=== PATIENT | male | born 1980 | race Caucasian/White ===

== ENCOUNTER 2022-10-18 16:14 | Emergency (ER) | payer OTHER, SELFPAY ==
[2022-10-18 16:27] VITALS: BP 125/93; PULSE 94; RESP 16; TEMP 36.7; O2SAT 96; BMI 28.8
--- NOTE | 2022-10-18 16:29 | ED_ITS ---
HPI - General Adult General Chief complaint: Chest Pain Stated complaint: heart issues Time Seen by Provider: 10/18/22 16:24 History of Present Illness HPI narrative: 42-year-old male nonsmoker with prior history of tachycardic episodes presents with a chief complaint of an episode of tachycardia this morning while at rest. His watch states his heart rate got up to about 160. This resolved long before his arrival. He states that he would presented initially to an outside walk-in clinic and had an EKG but as they could not obtain lab work he was sent here for further evaluation. He states that while his heart rate was high he was feeling a bit dizzy and lightheaded but in the aftermath he is asymptomatic. He denies any new medications, no change in his caffeine intake. He denies any street drugs such as cocaine or methamphetamines. Related Data Allergies Allergy/AdvReac Type Severity Reaction Status Date / Time No Known Drug Allergies Allergy Verified 10/18/22 16:27 Review of Systems Review of Systems Narrative: GENERAL: Denies chills, fatigue, malaise, fever, sweats. HEENT: Denies sinus pain, ear pain, sore throat, difficulty swallowing, dizziness. RESPIRATORY: Denies dyspnea, cough, wheezing, hemoptysis, sputum. CARDIOVASCULAR: See HPI GASTROINTESTINAL: Denies nausea, vomiting, abdominal pain, diarrhea, constipation, melena. : Denies dysuria, frequency, incontinence, hematuria, urinary retention. MUSCULOSKELETAL: denies weakness, joint pain, or bony pain SKIN: Denies rash, skin lesions, or other NEUROLOGIC: Denies weakness, headache, numbness, change in speech, confusion, seizures, incoordination. PSYCHIATRIC: No concerning psychosocial issues. 12 point review of systems is negative except for those stated above Patient History Social History Smoking Status: Never smoker Exam Narrative Exam Narrative: GENERAL: [42] year old patient appears stated age. Well-developed patient, in mild distress. HEAD: Atraumatic. Normocephalic. EYES: Pupils equal round and reactive. Extraocular motions intact. No scleral icterus. No injection or drainage. ENT: Nose without bleeding, purulent drainage. Throat without erythema, tonsillar hypertrophy or exudate. Airway patent. NECK: Trachea midline. Non tender CARDIOVASCULAR: Regular rate and rhythm without murmurs, gallops, or rubs. RESPIRATORY: Clear to auscultation. Breath sounds equal bilaterally. No wheezes, rales, or rhonchi. GASTROINTESTINAL: Abdomen soft, non-tender, nondistended. EXTREMITIES: No edema or joint tenderness. BACK: Nontender without deformity or crepitance. No flank tenderness. NEURO: AOx3. SKIN: No rash or erythema of visible areas Initial Vital Signs Initial Vital Signs: Vital Signs Temperature 98.1 F 10/18/22 16:27 Pulse Rate 94 H 10/18/22 16:27 Respiratory Rate 16 10/18/22 16:27 Blood Pressure 125/93 H 10/18/22 16:27 Pulse Oximetry 96 10/18/22 16:27 Oxygen Delivery Method Room Air 10/18/22 16:27 Course Orders Ordered: ED Orders 10/18/22 16:33 BMP [Basic Metabolic Panel] Stat CBC Auto Diff [Complete Blood Count AUTO DIFF] Stat Vital Signs Vital signs: Vital Signs - 8 hr 10/18/22 16:27 10/18/22 16:38 10/18/22 16:42 Temperature 98.1 F Pulse Rate 94 H 77 Respiratory Rate 16 Blood Pressure 125/93 H 112/67 Pulse Oximetry 96 95 Oxygen Delivery Method Room Air 10/18/22 16:42 10/18/22 17:00 10/18/22 17:00 Temperature Pulse Rate 75 71 Respiratory Rate 17 16 Blood Pressure 102/68 Pulse Oximetry 95 95 Oxygen Delivery Method Room Air 10/18/22 17:30 10/18/22 17:30 10/18/22 18:00 Temperature Pulse Rate 69 Respiratory Rate 14 Blood Pressure 109/71 122/78 Pulse Oximetry 96 Oxygen Delivery Method 10/18/22 18:00 Temperature Pulse Rate 72 Respiratory Rate 13 Blood Pressure Pulse Oximetry 98 Oxygen Delivery Method Medical Decision Making Lab Data 10/18/22 16:33 10/18/22 16:33 Labs: Lab Results 10/18/22 10/18/22 Range/Units 16:33 16:33 WBC 9.3 (4.5-11.0) X10^3/uL RBC 4.95 (4.5-5.9) X10^6/uL Hgb 14.6 (13.5-17.5) g/dL Hct 42.5 (41-53) % MCV 86.0 (80-100) fL MCH 29.4 (26-34) PG MCHC 34.2 (30-36) % RDW 13.8 (11.6-14.8) % Plt Count 467 H (150-400) X10^3/uL Neut % (Auto) 57.2 (50-75) % Lymph % (Auto) 31.8 (25-40) % [place] % (Auto) 7.0 (3-14) % Eos % (Auto) 3.1 (2-4) % Baso % (Auto) 0.9 (0-2) % Neut # (Auto) 5300 (7978-5801) /uL Lymph # (Auto) 2900 (7057-8619) /uL [place] # (Auto) 600 (0-900) /uL Eos # (Auto) 300 (0-450) /uL Baso # (Auto) 100 (0-100) /uL Sodium 136 L (137-145) mmol/L Potassium 3.9 (3.4-5.1) mmol/L Chloride 98 (98-107) mmol/L Carbon Dioxide 26 (22-32) mmol/L BUN 20 (9-20) mg/dL Creatinine 1.28 H (0.66-1.25) mg/dL Estimated GFR > 60 (>60) mL/min BUN/Creatinine Ratio 15.6 (6-22) Glucose 87 (70-100) mg/dL Calcium 9.2 (8.4-10.2) mg/dL ECG Data Interpretation: 1629] EKG is normal sinus rhythm rate [81 ] and free of any signs of ischemia or ectopy. No ST segmental elevation or depression. No T wave inversions MDM Narrative Medical decision making narrative: [42] year old patient presents with an episode of tachycardia with typical associated symptoms such as dizziness, weakness and lightheadedness Multiple etiologies for patient's symptoms considered including, but not limited to: [AFib versus SVT versus other] Prior Charts reviewed in our EMR Primary Historian: patient Labs reviewed and interpreted by myself: No significant abnormalities, specifically electrolytes within normal. EKG normal sinus rhythm Patient asymptomatic for duration of visit, EKG normal sinus, physical exam reassuring. Labs unremarkable. Patient encouraged to follow up close with his doctor, avoid caffeine in excess, nicotine, alcohol and other stimulants. Patient encouraged to return for recurrence of tachycardia, chest pain, shortness of breath or other concerning symptoms Findings and discharge diagnosis discussed with patient/family followed by verbalization of understanding Return precautions discussed with patient/family whom verbalize understanding of diagnosis and plan Discharge Plan Departure Patient Disposition: Home Clinical Impression: Heart palpitations Instructions: DI for Palpitations Activity Restrictions/Additional Instructions: *You have been diagnosed with [palpitations. Your history and physical exam are reassuring and there are no significant lab abnormalities. Your EKGs unremarkable at this time.] *What to do: *Please continue to take your regular medications as directed. *Please follow up with your primary care provider in 2-3 days, call for an appointment. Let them know you were seen in the Emergency Department and that we ask that you be seen in follow up. We will electronically transmit a record of today's note if your PCP is in our system *If you do not have a primary care provider please contact the [facility] Resource line at [phone]. They will ask some questions about your medical history and help get you set up with a doctor in the community. *Return to Emergency Department if you should have any new, worsening or concerning symptoms, such as [fever greater than 101 F, shaking chills, worsening pain, persistent vomiting or other bothersome symptoms] Referrals: Jose Ang DO [Primary Care Provider] - Stand Alone Forms: Patient Portal/API
[2022-10-18 16:38] VITALS: PULSE 77; O2SAT 95
[2022-10-18 16:42] VITALS: BP 112/67; PULSE 75; RESP 17; O2SAT 95
[2022-10-18 17:00] VITALS: BP 102/68; PULSE 71; RESP 16; O2SAT 95
[2022-10-18 17:30] VITALS: BP 109/71; PULSE 69; RESP 14; O2SAT 96
[2022-10-18 17:39] LABS: Add Manual Diff / Slide Review NO; Basophils Absolute Auto 100 /uL (0-100); Basophils Percent Auto 0.9 % (0-2); Eosinophils Absolute Auto 300 /uL (0-450); Eosinophils Percent Auto 3.1 % (2-4); Hematocrit 42.5 % (41-53); Hemoglobin 14.6 g/dL (13.5-17.5); Lymphocytes Absolute Auto 2900 /uL (1100-4500); Lymphocytes Percent Auto 31.8 % (25-40); Mean Corpuscular HGB Conc 34.2 % (30-36); Mean Corpuscular Hemoglobin 29.4 PG (26-34); Monocytes Absolute Auto 600 /uL (0-900); Neutrophils Absolute Auto 5300 /uL (1500-7000); Neutrophils Percent Auto 57.2 % (50-75); Platelet Count 467 X10^3/uL (150-400); Red Blood Cell Count 4.95 X10^6/uL (4.5-5.9); Red Cell Distribution Width 13.8 % (11.6-14.8); White Blood Cell Count 9.3 X10^3/uL (4.5-11.0)
[2022-10-18 17:44] LABS: BUN Creatinine Ratio 15.6 (6-22); Blood Urea Nitrogen 20 mg/dL (9-20); Calcium 9.2 mg/dL (8.4-10.2); Carbon Dioxide 26 mmol/L (22-32); Chloride 98 mmol/L (98-107); Estimated Glomerular Filt Rate > 60 mL/min (>60); Glucose 87 mg/dL (70-100); HEMOLYSIS < 15 (0-50); Potassium 3.9 mmol/L (3.4-5.1); Sodium 136 mmol/L (137-145)
[2022-10-18 18:00] VITALS: BP 122/78; PULSE 72; RESP 13; O2SAT 98
== END 2022-10-18 18:22 | disposition home or self-care (01) ==
PROVIDERS: Emergency Provider Emergency Medicine; PCP Family Medicine
DX: R00.2 Palpitations (principal)
CPT/HCPCS: 36415; 80048; 85025; 93005; 93010; 99283

== ENCOUNTER 2024-08-10 13:56 | Emergency (ER) | payer OTHER, SELFPAY ==
[2024-08-10 14:26] VITALS: BP 137/79; PULSE 72; RESP 20; TEMP 36.9; O2SAT 100; BMI 27.3
--- NOTE | 2024-08-10 14:36 | DI.RAD.S_ITS ---
PROCEDURE: XR CHEST 1V INDICATIONS: chest pain TECHNIQUE: One view of the chest was acquired. COMPARISON: None. FINDINGS: Surgical changes and devices: None. Lungs and pleura: Mild pulmonary vascular congestion is seen. No definite focal infiltrate. No pleural effusions or pneumothorax. Mediastinum: Mediastinal contours appear normal. Heart size is normal. Bones and chest wall: No suspicious bony lesions. Overlying soft tissues appear unremarkable. IMPRESSION: Mild pulmonary vascular congestion. No definite focal infiltrate. No pleural effusion or pneumothorax. Dictated by: Ben Sawyer M.D. on 08/10/2024 at 15:52 Approved by: Ben Sawyer M.D. on 08/10/2024 at 15:53
--- NOTE | 2024-08-10 14:36 | EKG_ITS ---
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
[2024-08-10 15:00] LABS: Add Manual Diff / Slide Review NO; Basophils Absolute Auto 100 /uL (0-100); Eosinophils Absolute Auto 0 /uL (0-450); Eosinophils Percent Auto 0.8 % (2-4); Hematocrit 44.1 % (41-53); Hemoglobin 14.8 g/dL (13.5-17.5); Lymphocytes Absolute Auto 1900 /uL (1100-4500); Lymphocytes Percent Auto 29.6 % (25-40); Mean Corpuscular HGB Conc 33.5 % (30-36); Mean Corpuscular Hemoglobin 29.3 PG (26-34); Mean Corpuscular Volume 87.4 fL (80-100); Monocytes Absolute Auto 500 /uL (0-900); Neutrophils Absolute Auto 3800 /uL (1500-7000); Neutrophils Percent Auto 60.6 % (50-75); Platelet Count 435 X10^3/uL (150-400); Red Blood Cell Count 5.04 X10^6/uL (4.5-5.9); Red Cell Distribution Width 14.4 % (11.6-14.8); White Blood Cell Count 6.3 X10^3/uL (4.5-11.0)
[2024-08-10 15:09] LABS: Prothrombin Time 11.1 SECONDS (9.4-12.5)
[2024-08-10 15:12] LABS: PTT Partial Thromboplastin Tim 35 SECONDS (25.1-36.5)
[2024-08-10 15:13] LABS: Alanine Aminotransferase 31 IU/L (<50); Albumin 4.9 g/dL (3.5-5.0); Albumin Globulin Ratio 1.5 (1.0-2.8); Alkaline Phosphatase 83 U/L (38-126); Aspartate Aminotransferase 33 IU/L (17-59); BUN Creatinine Ratio 22.3 (6-22); Bilirubin Total 0.9 mg/dL (0.2-1.3); Blood Urea Nitrogen 25 mg/dL (9-20); Calcium 9.7 mg/dL (8.4-10.2); Carbon Dioxide 27 mmol/L (22-32); Chloride 101 mmol/L (98-107); Creatine Kinase 265 U/L (55-170); Estimated Glomerular Filt Rate > 60 mL/min (>60); Globulin 3.2 g/dL (1.7-4.1); Glucose 103 mg/dL (70-99); HEMOLYSIS < 15 (0-50); Lipase 58 U/L (23-300); Magnesium 2.1 mg/dL (1.6-2.3); Potassium 4.3 mmol/L (3.4-5.1); Sodium 139 mmol/L (137-145); Total Protein 8.1 g/dL (6.3-8.2)
[2024-08-10 15:24] LABS: NT-proBNP (BNP-Adult 18+) < 20 pg/mL (<125); Troponin I < 0.012 ng/mL (0.01-0.034)
--- NOTE | 2024-08-10 16:50 | EKG_ITS ---
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
[2024-08-10] MEDS: ASPIRIN 81 MG CHEW TAB 324 MG PO (16:53)
[2024-08-10 17:22] LABS: Troponin I < 0.012 ng/mL (0.01-0.034)
--- NOTE | 2024-08-10 17:38 | ED.CHESTPAIN ---
HPI - Chest Pain <Benito Page PA-C - Last Filed: 08/10/24 17:50> General Chief Complaint: Chest Pain Stated Complaint: SOB, chest tightness Time Seen by Provider: 08/10/24 17:16 Source: patient Mode of arrival: Ambulatory Limitations: no limitations History of Present Illness HPI narrative: 43-year-old male with past medical history tachycardia presents to the ED with 2 weeks of intermittent palpitations, tachycardia and chest tightness. Patient states that he has recently increased the frequency and intensity of his cardio exercise.. Patient states his heart rate can get up to the 190s with exercise. Patient states that on 07/27/2022, his watch registered AFib. Since then, patient has had some chest tightness, anxiety, tachycardia and palpitations. Patient has had prior episodes of this in the past, patient even wore a Holter monitor for 30 days with no findings. No shortness of breath, nausea, vomiting, lightheadedness, dizziness, syncope. Related Data Allergies Allergy/AdvReac Type Severity Reaction Status Date / Time No Known Drug Allergies Allergy Verified 10/18/22 16:27 Review of Systems <Benito Page PA-C - Last Filed: 08/10/24 17:50> Constitutional Constitutional: Denies chills, Denies fatigue, Denies fever(s), Denies frequent falls, Denies lethargy and Denies weakness Eyes Eyes: Denies change in vision, Denies eye discharge, Denies irritation and Denies loss of vision ENT Ears, Nose, Mouth, and Throat: Denies change in voice, Denies dizziness, Denies neck pain, Denies sore throat and Denies throat swelling Cardiovascular Cardiovascular: Reports chest pain, Reports irregular heart rhythm, Denies lightheadedness, Reports palpitations, Denies dyspnea, Denies dyspnea on exertion and Denies orthopnea Respiratory Respiratory: Denies cough, Denies dyspnea, Denies dyspnea on exertion and Denies wheezing Gastrointestinal Gastrointestinal: Denies abdominal pain, Denies change in bowel habits, Denies diarrhea, Denies nausea and Denies vomiting Musculoskeletal Musculoskeletal: Denies neck pain and Denies numbness Integumentary/Breasts Skin/Breast: Denies pruritus, Denies erythema, Denies rash and Denies wounds Neurologic Neurologic: Denies behavioral changes, Denies confusion, Denies dizziness, Denies frequent falls, Denies loss of vision, Denies numbness and Denies weakness Psychiatric Psychiatric: Denies anxiety, Denies behavioral changes, Denies confusion, Denies depression, Denies homicidal ideation and Denies suicidal ideation Endocrine Endocrine: Denies fatigue, Denies flushing and Reports palpitations Hematologic/Lymphatic Hematologic/Lymphatic: Denies easy bruising Allergic/Immunologic Allergic/Immunologic: Denies urticaria, Denies throat swelling and Denies wheezing Patient History <Benito Page PA-C - Last Filed: 08/10/24 17:50> Social History Smoking Status: Never smoker Smoking Status: Never smoker Exam <Benito Page PA-C - Last Filed: 08/10/24 17:50> Narrative Exam Narrative: Const General:?cooperative, healthy appearing and comfortable [facility] Head:?normal to inspection Ears:?hearing grossly normal bilaterally Nose:?external nose normal Face and sinus:?normal facial exam and sinuses nontender Mouth:?oral mucosae normal Throat:?posterior oropharynx normal Eyes General:?appearance normal, both eyes and all related structures Neck Neck:?normal visual inspection and no lymphadenopathy noted Resp Effort & Inspection:?normal respiratory effort Auscultation:?clear to auscultation bilaterally Cardio Rate:?regular rate Rhythm:?regular rhythm Neuro General:?patient alert, patient awake and patient oriented x3 Initial Vital Signs Initial Vital Signs: Vital Signs Temperature 98.4 F 08/10/24 14:26 Pulse Rate 72 08/10/24 14:26 Respiratory Rate 20 08/10/24 14:26 Blood Pressure 137/79 08/10/24 14:26 Pulse Oximetry 100 08/10/24 14:26 Oxygen Delivery Method Room Air 08/10/24 14:26 <Arlyn Royal DO - Last Filed: 08/16/24 09:07> Initial Vital Signs Initial Vital Signs: Vital Signs Temperature 98.4 F 08/10/24 14:26 Pulse Rate 72 08/10/24 14:26 Respiratory Rate 20 08/10/24 14:26 Blood Pressure 137/79 08/10/24 14:26 Pulse Oximetry 100 08/10/24 14:26 Oxygen Delivery Method Room Air 08/10/24 14:26 Course <Benito Page PA-C - Last Filed: 08/10/24 17:50> Orders Ordered: Discontinued Medications Aspirin (Aspirin 81 Mg Chew Tab) 324 mg PO NOW ONE Stop: 08/10/24 14:37 Last Admin: 08/10/24 16:53 Dose: 324 mg Documented By: RB Vital Signs Vital signs: Vital Signs - 8 hr 08/10/24 14:26 Temperature 98.4 F Pulse Rate 72 Respiratory Rate 20 Blood Pressure 137/79 Pulse Oximetry 100 Oxygen Delivery Method Room Air <Arlyn Royal DO - Last Filed: 08/16/24 09:07> Orders Ordered: Discontinued Medications Aspirin (Aspirin 81 Mg Chew Tab) 324 mg PO NOW ONE Stop: 08/10/24 14:37 Last Admin: 08/10/24 16:53 Dose: 324 mg Documented By: RB Vital Signs Vital signs: Vital Signs - 8 hr 08/10/24 14:26 Temperature 98.4 F Pulse Rate 72 Respiratory Rate 20 Blood Pressure 137/79 Pulse Oximetry 100 Oxygen Delivery Method Room Air MDM - Chest Pain <Benito Page PA-C - Last Filed: 08/10/24 17:50> Lab Data 08/10/24 14:48 08/10/24 14:48 Labs: Lab Results 08/10/24 08/10/24 Range/Units 14:48 16:51 WBC 6.3 (4.5-11.0) X10^3/uL RBC 5.04 (4.5-5.9) X10^6/uL Hgb 14.8 (13.5-17.5) g/dL Hct 44.1 (41-53) % MCV 87.4 (80-100) fL MCH 29.3 (26-34) PG MCHC 33.5 (30-36) % RDW 14.4 (11.6-14.8) % Plt Count 435 H (150-400) X10^3/uL Neut % (Auto) 60.6 (50-75) % Lymph % (Auto) 29.6 (25-40) % [place] % (Auto) 8.0 (3-14) % Eos % (Auto) 0.8 L (2-4) % Baso % (Auto) 1.0 (0-2) % Neut # (Auto) 3800 (8620-1527) /uL Lymph # (Auto) 1900 (0340-9703) /uL [place] # (Auto) 500 (0-900) /uL Eos # (Auto) 0 (0-450) /uL Baso # (Auto) 100 (0-100) /uL PT 11.1 (9.4-12.5) SECONDS INR 1.0 (0.9-1.3) APTT 35 (25.1-36.5) SECONDS Sodium 139 (137-145) mmol/L Potassium 4.3 (3.4-5.1) mmol/L Chloride 101 (98-107) mmol/L Carbon Dioxide 27 (22-32) mmol/L BUN 25 H (9-20) mg/dL Creatinine 1.12 (0.66-1.25) mg/dL Estimated GFR > 60 (>60) mL/min BUN/Creatinine Ratio 22.3 H (6-22) Glucose 103 H (70-99) mg/dL Calcium 9.7 (8.4-10.2) mg/dL Magnesium 2.1 (1.6-2.3) mg/dL Total Bilirubin 0.9 (0.2-1.3) mg/dL AST 33 (17-59) IU/L ALT 31 (<50) IU/L Alkaline Phosphatase 83 (38-126) U/L Total Creatine Kinase 265 H (55-170) U/L Troponin I < 0.012 < 0.012 (0.01-0.034) ng/mL NT-Pro-B Natriuret Pep < 20 (<125) pg/mL Total Protein 8.1 (6.3-8.2) g/dL Albumin 4.9 (3.5-5.0) g/dL Globulin 3.2 (1.7-4.1) g/dL Albumin/Globulin Ratio 1.5 (1.0-2.8) Lipase 58 (23-300) U/L [facility] Narrative Medical decision making narrative: 43-old male with past medical history tachycardia presents to the ED with 2 weeks of intermittent palpitations, tachycardia and chest tightness. EKG x2 is normal sinus rhythm with sinus arrhythmia. No acute ST-T changes. No axis deviation. Chest x-ray shows mild pulmonary vascular congestion, no definite focal infiltrate. No pleural effusion or pneumothorax. Troponin x2 within normal limits. BNP within normal limits. Labs within normal limits. Discussed findings with patient. Recommend follow-up with Cardiology for further evaluation and cardiac monitoring. Patient endorses that seeing the AFib on the watch has caused him to feel more anxious, and when he feels anxious he feels tachycardic. Counseled patient to cut down on exercise intensity somewhat with the goal to limit his max heart rate. Recommend good hydration. ED return precautions were discussed with patient. Patient verbalized understanding. Medical records reviewed: Yes <Arlyn Royal, DO - Last Filed: 08/16/24 09:07> Lab Data Labs: Lab Results 08/10/24 08/10/24 Range/Units 14:48 16:51 WBC 6.3 (4.5-11.0) X10^3/uL RBC 5.04 (4.5-5.9) X10^6/uL Hgb 14.8 (13.5-17.5) g/dL Hct 44.1 (41-53) % MCV 87.4 (80-100) fL MCH 29.3 (26-34) PG MCHC 33.5 (30-36) % RDW 14.4 (11.6-14.8) % Plt Count 435 H (150-400) X10^3/uL Neut % (Auto) 60.6 (50-75) % Lymph % (Auto) 29.6 (25-40) % [place] % (Auto) 8.0 (3-14) % Eos % (Auto) 0.8 L (2-4) % Baso % (Auto) 1.0 (0-2) % Neut # (Auto) 3800 (9487-9931) /uL Lymph # (Auto) 1900 (5936-6034) /uL [place] # (Auto) 500 (0-900) /uL Eos # (Auto) 0 (0-450) /uL Baso # (Auto) 100 (0-100) /uL PT 11.1 (9.4-12.5) SECONDS INR 1.0 (0.9-1.3) APTT 35 (25.1-36.5) SECONDS Sodium 139 (137-145) mmol/L Potassium 4.3 (3.4-5.1) mmol/L Chloride 101 (98-107) mmol/L Carbon Dioxide 27 (22-32) mmol/L BUN 25 H (9-20) mg/dL Creatinine 1.12 (0.66-1.25) mg/dL Estimated GFR > 60 (>60) mL/min BUN/Creatinine Ratio 22.3 H (6-22) Glucose 103 H (70-99) mg/dL Calcium 9.7 (8.4-10.2) mg/dL Magnesium 2.1 (1.6-2.3) mg/dL Total Bilirubin 0.9 (0.2-1.3) mg/dL AST 33 (17-59) IU/L ALT 31 (<50) IU/L Alkaline Phosphatase 83 (38-126) U/L Total Creatine Kinase 265 H (55-170) U/L Troponin I < 0.012 < 0.012 (0.01-0.034) ng/mL NT-Pro-B Natriuret Pep < 20 (<125) pg/mL Total Protein 8.1 (6.3-8.2) g/dL Albumin 4.9 (3.5-5.0) g/dL Globulin 3.2 (1.7-4.1) g/dL Albumin/Globulin Ratio 1.5 (1.0-2.8) Lipase 58 (23-300) U/L Discharge Plan Departure Patient Disposition: Home Clinical Impression: Palpitations Instructions: DI for Atypical Chest Pain Activity Restrictions/Additional Instructions: You were evaluated in the ED today for palpitations and chest tightness. A full cardiac workup was done which was normal today. Your EKG does show a sinus arrhythmia, which can be normal. It is advised that you reduce your exercise intensity a little to avoid getting your heart rates too high. Please also consume plenty of water. It is advised that you follow-up with cardiology for further evaluation and monitoring of the palpitations. Return to the ED if you have worsening symptoms, chest pain, trouble breathing. Referrals: Jose Ang DO [Primary Care Provider] - Stand Alone Forms: Patient Portal/API/Survey ED Sign-out <Arlyn Royal DO - Last Filed: 08/16/24 09:07> Cosign ED Attending Cari Attestation: I was available for consultation.
[2024-08-10 17:40] VITALS: BP 132/76; PULSE 60; RESP 20; O2SAT 100
== END 2024-08-10 17:42 | disposition home or self-care (01) ==
PROVIDERS: Emergency Medicine; Emergency Provider Student in an Organized Health Care Education/Training Program; PCP Family Medicine
DX: R00.2 Palpitations (principal); R00.0 Tachycardia, unspecified; R07.9 Chest pain, unspecified
CPT/HCPCS: 36415; 71045; 80053; 82550; 83690; 83735; 83880; 84484; 85025; 85610; 85730; 93005; 99284